=== PATIENT | female | born 1995 | race Caucasian/White ===

== ENCOUNTER 2017-02-16 23:21 | Observation (INO) | payer MEDICARE ==
[~2017-02-16] VITALS: Ht 160 cm; Wt 97.1 kg
[2017-02-17] MEDS ORDERED: IRON1CAP21 PO (01:01)
[2017-02-17] MEDS ORDERED: PNV1TABL76 MT (01:01)
== END 2017-02-17 01:00 | disposition home or self-care (01) ==
LOC: L&D 23:21
PROVIDERS: ADMIT Obstetrics & Gynecology; ATTEND Obstetrics & Gynecology
DX: O62.9 Abnormality of forces of labor, unspecified (principal); O26.893 Other specified pregnancy related conditions, third trimester; R10.30 Lower abdominal pain, unspecified; Z3A.38 38 weeks gestation of pregnancy
CPT/HCPCS: 99281; G0378

== ENCOUNTER 2017-03-01 10:05 | Observation (INO) | payer MEDICARE ==
[~2017-03-01] VITALS: Ht 160 cm; Wt 102.5 kg
[~2017-03-01 10:05] MED LIST: IRON1CAP21 PO; PNV1TABL76 MT
== END 2017-03-01 11:26 | disposition home or self-care (01) ==
LOC: L&D 10:05
PROVIDERS: ADMIT Obstetrics & Gynecology; ATTEND Obstetrics & Gynecology
DX: O26.893 Other specified pregnancy related conditions, third trimester (principal); R10.9 Unspecified abdominal pain; Z3A.39 39 weeks gestation of pregnancy
CPT/HCPCS: 99281; G0378

== ENCOUNTER 2017-03-06 15:49 | Observation (INO) | payer MEDICARE | END 2017-03-06 18:00 | disposition home or self-care (01) | LOC: L&D 15:49 | PROVIDERS: ADMIT Obstetrics & Gynecology; ATTEND Obstetrics & Gynecology | DX: O36.8130 Decreased fetal movements, third trimester, not applicable or unspecified (principal); O48.0 Post-term pregnancy; Z3A.40 40 weeks gestation of pregnancy | CPT/HCPCS: 76815; 76818; 99281; G0378 ==

== ENCOUNTER 2017-03-29 09:33 | Emergency (ER) | payer MEDICARE ==
[~2017-03-29] VITALS: Ht 162.6 cm; Wt 95.0 kg
[2017-03-29 09:40] VITALS: BP 127/54
== END 2017-03-29 12:29 | disposition left against medical advice (07) ==
LOC: ER 09:33
DX: Z48.02 Encounter for removal of sutures (principal); Z53.21 Procedure and treatment not carried out due to patient leaving prior to being seen by health care provider

== ENCOUNTER 2017-06-17 10:31 | Emergency (ER) | payer MEDICARE ==
[~2017-06-17] VITALS: Ht 160 cm; Wt 82.0 kg
[2017-06-17 10:53] VITALS: BP 120/66
== END 2017-06-17 16:18 | disposition left against medical advice (07) ==
LOC: ER 11:09
DX: R51 Headache (principal); Z53.21 Procedure and treatment not carried out due to patient leaving prior to being seen by health care provider